=== PATIENT | female | born 1955 | race Caucasian/White ===

== ENCOUNTER → 2023-08-30 15:29 | Outpatient (BNVA) | payer MEDICARE, BC, SELFPAY | PROVIDERS: Visit Provider Podiatrist Foot & Ankle Surgery | DX: M19.071 Primary osteoarthritis, right ankle and foot; M19.072 Primary osteoarthritis, left ankle and foot; M20.21 Hallux rigidus, right foot; M20.22 Hallux rigidus, left foot | CPT/HCPCS: 73630; 99203 ==

== ENCOUNTER 2025-02-09 13:51 | Emergency (ER) | payer MEDICARE, BC, SELFPAY ==
--- OUTSIDE RECORDS SUMMARY | 2025-02-09 13:55 | XMS_ITS | Encounter Summary ---
Author Organization [facility] Address [address] [place] [address] Care Team Providers Care Wastewater Project Manager Name Role Phone Sanchez Dsouza MD Primary Care Provider [phone] Reason for Visit * Reason Onset Date Comments Results 12/10/2024 Encounter Details Date Type Department Care Team (Late st Contact Info) Description 12/10/2024 Results Follow-Up [facility] Medicine [address] [address] Sanchez Dsouza MD [address] [place] [address] HEMOGLOBIN A1C, MAGNESIUM LEVEL, VITAMIN B12 LEVEL, Additional followed-up results: 7 Social History Tobacco Use Types Packs/Day Years Used Date Smoking Tobacco: Never Smokeless Tobacco: Never Alcohol Use Standard Drinks/Week Comments No 0 (1 standard drink = 0.6 oz pur e alcohol) Financial Resource Strain Answer Date R ecorded How hard is it for you to pa y for the very basics like food, housing, medical care, and heating? Not hard at all 11/03/2021 Food Insecurity Answer Date Recorded In the past 12 months, have you worried that your food would run out before you had money to buy more? Never true 11/03/2021 In the past 12 months, did y ou run out of food and didn't have money to buy more? Never true 11/03/2021 Transportation Needs Answer Date Record ed In the past 12 months, has l ack of transportation kept you from medical appointments or from getting medications? No 11/03/2021 Lack of Transportation (Non-Medical) Not on file 11/03/2021 Feeling Safe Answer Date Recorded Are you in a relationship wi th someone who hurts you emotionally and/or physically? 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 Voiced understanding. She states that she is a carnivore and doesn't eat carbs, sugar, soda, or take NSAIDs. She reports that she wasn't fasting for this lab and that is why the cholesterol is elevated. Results faxed to Dr. Esquivel. Linda OWEN * Telephone Encounter - Linda Elliott RN - 12/10/2024 9:28 AM CDT ----- Message from Dr. Sanchez Dsouza sent at 12/10/2024 7:19 AM CDT ----- A1c abnormal at 6.0 consistent with prediabetes, blood sugar is borderline elevated, patient needs to improve diet intake of carbohydrates and cut down on any excess sweets or sugary drinks, cholesterol is significantly elevated, magnesium normal, thyroid normal, B12 normal, vitamin D normal, PTH normal, blood count looks good, liver enzymes normal, electrolytes normal, kidney function is below normal, I would increase clear fluids, reduce salt and sodas and avoid all [id number] NSAIDs. Recommend repeat labs in the next few weeks, tests ordered. If she is interested in treating cholesterol I would recommend medication and I will send to pharmacy if she agrees. Patient follows with cardiology in [place], please forward lab results. documented in this encounter Plan of Treatment Scheduled Orders Name Type Priority Associated Diagnoses Orde r Schedule BASIC METABOLIC PANEL Lab Routine BENEDICTO (acute kidney injury) Expected: 12/10/2024, Expires: 12/10/2025 documented as of this encounter Visit Diagnoses Diagnosis BENEDICTO (acute kidney injury)- Primary Acute kidney failure, unspecified documented in this encounter Additional Health Concerns Assessment Noted Time PHQ-9 Depression Total Score: 2 11/20/19 25 12:19 PM CDT documented as of this encounter Care Teams Wastewater Project Manager Relationship Specialty Start Date End Date Sanchez Dsouza MD [address] [id number] PCP - General Family Practice 04/07/21 documented as of this encounter
--- OUTSIDE RECORDS SUMMARY | 2025-02-09 13:55 | XMS_ITS | Clinical Summary ---
Author Organization [place] [id number] [facility] Address [address] [place] [address] Care Team Providers Care Shoe Clerk Name Role Phone Unknown, Notinfile Primary Care Provider Unavail able Allergies No known active allergies Medications losartan (COZAAR) 100 mg tablet Take 1 tablet (100 mg total) by mouth daily Active magnesium carb,citrate,oxi de (MAGNESIUM COMPLEX ORAL) Take 1 tablet by mouth 56mg Active apixaban (ELIQUIS) 5 mg tabletIndication s:Atrial fibrillation, unspecified type (HCC) Take 1 tablet (5 mg total) by mouth 2 (two) times a day 180 tablet 3 12/10/2024 Active metoprolol XL (TOPROL-XL) 50 mg extended release tabletIndication s:Atrial fibrillation, unspecified type (HCC) Take 1 tablet (50 mg total) by mouth daily 90 tablet 3 12/10/2024 Active Active Problems Problem Noted Date Diagnosed Date Persistent atrial fibrillation 12/10/2024 Essential hypertension 12/10/2024 Class 2 obesity with body ma ss index (BMI) of 35.0 to 35.9 in adult 12/10/2024 Amblyopia 11/23/2010 Encounters Date Type Department Care Team Description 12/25/2024 Telephone [facility] Medicine Cardiology [facility] Advanced Medicine [address]th [place] [address] [place] [phone] Abraham Esquivel MD PhD 12/10/2024 12:00 PM CDT Office Visit [facility] Medicine Cardiology [facility] Medicine [address]th [place] [address] [place] [address] Abraham Esquivel MD PhD Persistent atrial fibrillation (HCC) (Primary Dx); Atrial fibrillation, unspecified type (HCC); Essential hypertension; Class 2 severe obesity due to excess calories with serious comorbidity and body mass index (BMI) of 35.0 to 35.9 in adult (HCC) 12/10/2024 Results Follow-Up [facility] Medicine Cardiology [address] [facility] 8th [place] [address] [place] [address] Abraham Esquivel MD PhD ECG 12 lead from Last 3 Months Social History Tobacco Use Types Packs/Day Years Used Date Smoking Tobacco: Never Comments Unknown Sex and Gender Information Value Date Recorded Sex Assigned at Not on file 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 Gender Identity Not on file Sexual Orientation Not on file Obstetrics History Last Filed Vital Signs Vital Sign Reading Time Taken Comments Blood Pressure 168/104 12/10/2024 11:54 AM CDT Pulse 81 12/10/2024 11:54 AM CDT Temperature - - Respiratory Rate - - Oxygen Saturation 98% 12/10/2024 11:54 AM CDT Inhaled Oxygen Concentration - - Weight 90.8 kg (200 lb 3.2 oz) 12/10/2024 11:54 AM CDT Height 160 cm (5' 3 ) 12/10/2024 11:54 AM CDT Body Mass Index 35.46 12/10/2024 11:54 AM CDT Plan of Treatment Health Maintenance Due Date Last Done Comments Colon Cancer Screening-Colonoscopy 1955 Depression Screening 1955 Fall Risk Assessment 1955 Hepatitis C Screening 1955 Osteoporosis Screening-Bone Density Scan 1955 Hepatitis B Screening 09/09/1973 Pneumococcal vaccine 65+ (1 of 1 - PCV) 09/09/2005 Zoster Vaccine (1 of 2) 09/09/2005 Breast Cancer Screening-Mammogram 04/14/2012 011, 04/14/2011 Well Visit 65+ 09/09/2020 Influenza Vaccine (#1) 2025 DTaP/Tdap/Td Vaccine (2 - Td or Tdap) 03/06/203012/2019 Procedures Procedure Name Priority Date/Time Associated Diagnosis Comments ECG 12-LEAD Routine 12/10/2024 11:58 AM CDT Persistent atrial fibrillation (HCC) from Last 3 Months Results * ECG 12 lead (12/10/2024 11:58 AM CDT) Abraham Esquivel MD PhD ECG ORDERABLES Final Result from Last 3 Months Insurance MEDICARE [facility] MEDICARE SUPPLEMENT [address] [facility] [address] [place] [id number] Care Teams Shoe Clerk Relationship Specialty Start Date End Date Unknown, Notinfile PCP - General 08/09/24
--- OUTSIDE RECORDS SUMMARY | 2025-02-09 13:55 | XMS_ITS | Encounter Summary ---
Author Organization [facility] Address [address] [place] [address] Care Team Providers Care Field Associate Name Role Phone Sanchez Dsouza MD Primary Care Provider [phone] Reason for Visit * Reason Onset Date Comments Ambulatory Social Work 04/05/2024 Med costs Encounter Details Date Type Department Care Team (Late st Contact Info) Description 04/05/2024 Patient Outreach [facility] Collections Agent Management [address] [facility] [place] [address] Ary Acosta, [facility] Ambulatory Social Work (Med costs) Social History Tobacco Use Types Packs/Day Years [...] on file 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
--- OUTSIDE RECORDS SUMMARY | 2025-02-09 13:55 | XMS_ITS | Encounter Summary ---
Author Organization [facility] Address [address] [place] [address] Care Team Providers Care Office Machine Installer Name Role Phone Sanchez Dsouza MD Primary Care Provider [phone] Reason for Visit * Reason Onset Date Comments Ambulatory Social Work 04/04/2024 Medicatio n costs Encounter Details Date Type Department Care Team (Late st Contact Info) Description 04/04/2024 Patient Outreach [facility] Tape Machine Tailer Management [address] [facility], [address] [place] [address] Ary Acosta, LIBRARY SALES CONSULTANT Ambulatory Social Work (Medication costs) Social History Tobacco Use Types Packs/Day [...] on file 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
--- OUTSIDE RECORDS SUMMARY | 2025-02-09 13:55 | XMS_ITS | Encounter Summary ---
Author Organization [facility] Address 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 Gender Identity Not on file Sexual Orientation Not on file documented as of this encounter Plan of Treatment Not on file documented as of this encounter Procedures Procedure Name Priority Date/Time Associated Diagnosis Comments PROTIME-INR Stat 03/23/2024 4:05 PM CDT Encounter for other specified aftercare documented in this encounter Results * PROTIME-INR (03/23/2024 4:05 PM CDT) PROTIME 12.9 11.9 - 14.6 Seconds 03/23/2024 4:18 PM CDT [facility] INR 1.0 0.9 - 1.1 03/23/2024 4:18 PM CDT [facility] Blood 03/23/2024 4:05 PM CDT 03/23/2024 4:05 PM CDT Fredy Mccormick MD HEMATOLOGY ORDERA BLES Final Result [facility] CLIA # [id number] [address] [address] documented in this encounter Visit Diagnoses Diagnosis Encounter for other specified aftercare documented in this encounter Care Teams Can Worker Relationship Specialty Start Date End Date Sanchez Dsouza MD [address] [phone] PCP - General Family Practice 04/07/21 documented as of this encounter
--- OUTSIDE RECORDS SUMMARY | 2025-02-09 13:55 | XMS_ITS | Encounter Summary ---
Author Organization [facility] Address [address] [address] Phone Care Team Providers Care Shaker Tender Name Role Phone Yifan Marte COMPUTER ANALYST Primary Care Provider [phone] Reason for Visit * Reason Comments Med Refill Encounter Details Date Type Department Care Team (Late st Contact Info) Description 10/17/2020 Refill [facility] [address] [id number] Yifan Marte, [address] [address] Social History Tobacco Use Types Packs/Day Years Used Date Smoking Tobacco: Never Smokeless Tobacco: Never Alcohol Use Standard Drinks/Week Comments Never 0 (1 standard drink = 0.6 oz pur e alcohol) AUDIT-C Answer Date Recorded Q1: How often do you have a drink containing alc ohol? Never 04/23/2020 Average Number of Drinks Not on file 020 Frequency of Binge Drinking Not on file 03/31 Comments Unknown Sex and Gender Information Value Date Recorded Sex Assigned at Not on file Legal Sex Female 10:52 AM CDT Gender Identity Not on file Sexual Orientation Not on file COVID-19 Exposure Response Date Recorded In the last month, have you been in contact with someone who was confirmed or suspected to have Coronavirus / COVID-19? No / Unsure 10/14/2020 4:38 PM CDT documented as of this encounter Plan of Treatment Not on file documented as of this encounter Visit Diagnoses Not on filedocumented in this encounter Care Teams Shaker Tender Relationship Specialty Start Date End Date Yifan Marte FNP PCP - General Family Medicine 03/27/20 04/13/21 documented as of this encounter
--- OUTSIDE RECORDS SUMMARY | 2025-02-09 13:55 | XMS_ITS | Patient Health Record ---
Author Organization [facility] Address [address] [place] [address] Support Name Relationship Address Phone BABAK GLYNN Guarantor Unknown [phone] Reason For Referral No Information Medications Medication SIG (Take, Route, Frequency, Duration) Notes Start Date End Date Status Spironolactone 25 MG 1 tablet Oral daily Not-Taking Cartia XT 240 MG 1 capsule Oral daily Not-Taking Medications Reconciled *please review for potential update for e-prescription and drug interaction check* Not-Taking Quinapril HCl 40 MG 1 tablet Oral daily Not-Taking Labetalol HCl 100 MG 1 tablet Oral daily Not-Taking Immunizations Vaccine Route Administration Date Status Comme nts Influenza, seasonal, injectable (split), for 3 yrs and up OTH Other/Miscell aneous 05/30/2019 Not Administered NotGiven Reason : Declined by Patient/Guardian Problems Problem Type SNOMED Code ICD Code Onset Dates Problem Status W/U Status Risk Notes Problem Obese class II (finding) (816383461849267) CLASS 2 OBESITY (E66.9) Inactive confirmed Description :OBESITY, CLASS II (BMI 35-39.9) Problem Dietary management surveillance (215153830) ENCOUNTER FOR DIETARY COUNSELING AND SURVEILLANCE (Z71.3) Inactive confirmed Description :DIETARY COUNSELING Problem Hypercalcemia (95189189) Hypercalcemia (E83.52) Inactive confirmed Problem Influenza vaccination declined (610790856) REFUSED INFLUENZA VACCINE (Z28.21) Inactive confirmed Description :IMMUNIZATI ON DECLINED BY PATIENT Problem Hyperparathyroidism (55525662) HYPERPARATHYROIDI SM (E21.3) Inactive confirmed Problem Essential hypertension (06345626) Essential hypertension (I10) Inactive confirmed Problem Anxiety (60525500) ANXIETY (F41.9) Inactive conf irmed Problem Fatigue (16396685) FATIGUE (R53.83) Inactive con firmed Problem Vitamin D deficiency (52691845) VITAMIN D DEFICIENCY (E55.9) Inactive confirmed Problem 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, 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) Inactive confirmed Comment:con genital, Problem Non-toxic multinodular goiter (70513323) MULTINODULAR GOITER (NONTOXIC) (E04.2) Inactive confirmed Plan Of Treatment No Information Insurance Providers Payer Name Payer Address Payer Phone Subscriber Number Group Number Insured Name Patient Relationship to Insured Coverage Start Date Coverage End Date [employer] [address] [place] [address] [id number] BABAK GLYNN Self - patient is the insured 8 Medical (General) History Surgical History Surgery Date(Month/Year) Tonsillectomy, ProblemStatus: Active, Parathyroidectomy, COMMENTS: left lower, 07/06/19, ProblemStatus: Active, Left wrist surgery, COMMENTS: s/p fx, Pr oblemStatus: Active,
--- OUTSIDE RECORDS SUMMARY | 2025-02-09 13:55 | XMS_ITS | Encounter Summary ---
Author Organization [facility] Address [address] [address] Phone Care Team Providers Care Logistics Analytics Manager Name Role Phone Yifan Marte Primary Care Provider [phone] Encounter Details Date Type Department Care Team (Late st Contact Info) Description 04/23/2020 Orders Only [facility] [address] [place] [address] Kadie Oliver LPN [address] [place] [address] Hyperlipidemia, unspecified hyperlipidemia type Social History Tobacco Use Types Packs/Day Years [...] on file documented as of this encounter Functional Status documented as of this encounter Plan of Treatment Not on file documented as of this encounter Visit Diagnoses Diagnosis Hyperlipidemia, unspecified hyperlipidemia type documented in this encounter Care Teams Logistics Analytics Manager Relationship Specialty Start Date End Date Yifan Marte FNP PCP - General Family Medicine 03/27/20 04/13/21 documented as of this encounter
--- OUTSIDE RECORDS SUMMARY | 2025-02-09 13:55 | XMS_ITS | Clinical Summary ---
Author Organization [facility] Address [address] Darden: Epic Prelude ADT ELIU BEGUM [address] Care Team Providers Care Brake Specialist Name Role Phone Sanchez Dsouza MD Primary Care Provider [phone] Allergies Active Allergy Reactions Criticality Noted Date Comments Lisinopril Other (See Comments) 11/11/2022 fatigue Squid Anaphylaxis High 01/09/2020 Other reaction(s): Anaphylaxis Squid Oil Shortness of Breath/Wheezing High 07/06/2019 Squid Causes Shortness of breath, rash, throat swelling Medications MAGNESIUM ORAL Take 1 Tablet by mouth late in the day. Active diltiaZEM (TIAZAC) 360 mg Extended Release capsule Take 360 mg by mouth daily. 06/10/2023 Active losartan (COZAAR) 100 mg tablet Take 100 mg by mouth daily. 11/10/2023 Active spironolactone (ALDACTONE) 25 mg tablet Take 25 mg by mouth daily. Active aspirin (ECOTRIN EC) 81 mg Tablet, Delayed Release (E.C.) Take 81 mg by mouth daily. Active Active Problems Problem Noted Date Diagnosed Date Hyperlipidemia 11/03/2021 Benign hypertension 04/07/2021 History of parathyroidectomy 04/07/2021 Severe obesity (BMI 35.0-39.9) with comorbidity 04/07/2021 Paroxysmal atrial fibrillation 04/23/2020 Encounters Date Type Department Care Team Description 02/05/2025 External Device Data STL ABSTRACTION Provider, Abstract 01/29/2025 External Device Data ST[facility] ABSTRACTION Provider, Abstract 01/15/2025 External Device Data ST[facility] ABSTRACTION Provider, Abstract 01/15/2025 External Device Data [facility] ABSTRACTION Provider, Abstract 12/12/2024 External Device Data ST[facility] ABSTRACTION Provider, Abstract 12/10/2024 Results Follow-Up [address] [address] Sanchez Dsouza MD HEMOGLOBIN A1C, MAGNESIUM LEVEL, VITAMIN B12 LEVEL, Additional followed-up results: 7 12/06/2024 External Device Data Initial Department [address] [place] [address] Dr DARDEN: [place] [address] Crist[facility] 11/29/2024 External Device Data Initial Department [address] [place] [address] Dr DARDEN: [place] [address] [facility] 11/28/[address] [address] Provider, Abstract 11/27/2024 External Device Data ST[facility] ABSTRACTION Provider, Abstract 11/23/2024 External Device Data Initial Department [address] [place] [address] Dr DARDEN: [place] [address] [facility] 11/20/2024 10:40 AM CDT Office Visit [address] [address] Sanchez Dsouza MD Medicare annual wellness visit, subsequent (Primary Dx); Paroxysmal atrial fibrillation (CMS/HCC); Benign hypertension; Severe obesity (BMI 35.0-39.9) with comorbidity (CMS/HCC); History of parathyroidectomy; Mixed hyperlipidemia; Fatigue, unspecified type; Other fdc (current) drug therapy 11/19/2024 External Device Data Initial Department [address] [place] [address] Dr DARDEN: [place] [address] Cristian Price Md 11/19/2024 Orders Only [address] [address] Sanchez Dsouza MD Warfarin anticoagulation 11/15/2024 Orders Only [facility] [place] [address] [place] [address] Provider, Abstract 11/15/2024 Abstract [facility] [address] [phone] Sanchez Dsouza MD 11/15/2024 External Device Data Initial Department [address] [place] [address] Dr DARDEN: [place] [address] Crist[facility] Emergency, 11/12/2024 External Device Data Initial Department [address] [place] [address] Dr DARDEN: [place] [address] Cristian Emergency, Md 11/12/2024 Orders Only [facility] [address] [address] Sanchez Dsouza MD Warfarin anticoagulation from Last 3 Months Immunizations Immunization Administration Dates Next Due (ADACEL/BOOSTRIX)(10 YR UP) TDAP VACCINE, 0.5ML, IM 03/06/2020 Family History Medical History Relation Name Comments Breast Cancer Neg Hx Social History Tobacco Use Types Packs/Day Years [...] on file Legal Sex 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 2:54 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 Gender Identity Not on file Sexual Orientation Not on file Last Filed Vital Signs Vital Sign Reading Time Taken Comments Blood Pressure 160/94 11/20/2024 10:52 AM CDT Pulse 105 11/20/2024 10:47 AM CDT Temperature 36.5 C (97.7 F) 11/20/2024 10:47 AM CDT Respiratory Rate 17 11/20/2024 10:47 AM CDT Oxygen Saturation 96% 11/20/2024 10:47 AM CDT Inhaled Oxygen Concentration - - Weight 90.4 kg (199 lb 6.4 oz) 11/20/2024 10:47 AM CDT Height 160 cm (5' 3 ) 11/20/2024 10:47 AM CDT Body Mass Index 35.32 11/20/2024 10:47 AM CDT Plan of Treatment Health Maintenance Due Date Last Done Comments FIT/ DNA Q 3 YEARS (AUTO ORDER) 09/09/1973 FIT/FOBT Q 1 YEAR (AUTO ORDER) 09/09/1973 PNEUMOCOCCAL VACCINE 50+ YEARS (1 of 2 - PCV) 09/09/1974 FIT-DNA Q 3 years 09/09/2000 FIT/FOBT Q 1 year 09/09/2000 Flex Sig/CT Colonography Q 5 years 09/09/2000 ZOSTER VACCINE (1 of 2) 09/09/2005 RSV VACCINE (60+ or ) (1 - Risk 60-74 years 1-dose series) 2015 OSTEOPOROSIS SCREENING 09/09/2020 INFLUENZA VACCINE (#1) 2024 04/07/2021 FLEX SIG/CT COLONOGRAPHY Q 5 YEARS (AUTO ORDER) 01/10/2025 01/11/2020, 01/11/2020 BREAST CANCER SCREENING 03/27/2025 04/14/20 11, 04/14/2011, 02/26/2010, Additional history exists Postponed from 04/14/2012 (Patient Request) Traditional Medicare (ACO) Annual Wellness Visit 11/21/2025 11/20/2024, 11/21/2023, 11/05/2022, Additional history exists Pre-Diabetes and Diabetes Screening 11/21/2027 11/20/2024 COLORECTAL CANCER SCREENING (AUTO ORDER) 01/10/2030 01/11/2020, 01/11/2020 COLORECTAL SCREENING 01/10/2030 01/11/2020, 01/11/20 20 Colorectal Cancer Screening (AUTO ORDER) 01/10/2030 Colorectal Cancer Screening 01/10/2030 DTAP/TDAP/TD VACCINES (2 - Td or Tdap) 03/06/2030 03/06/2020 Procedures Procedure Name Priority Date/Time Associated Diagnosis Comments URINALYSIS W/REFLEX MICROSCOPIC Routine 11/20/2024 3:58 PM CDT Paroxysmal atrial fibrillation (CMS/HCC) Benign hypertension Mixed hyperlipidemia Fatigue, unspecified type Other fdc (current) drug therapy PTH INTACT Routine 11/20/2024 11:44 AM CDT History of parathyroidectomy Fatigue, unspecified type Other fdc (current) drug therapy CBC WITH DIFFERENTIAL Routine 11/20/2024 11:44 AM CDT Paroxysmal atrial fibrillation (CMS/HCC) Benign hypertension Mixed hyperlipidemia Fatigue, unspecified type Other termite technician (current) drug therapy COMPREHENSIVE METABOLIC PANEL Routine 11/20/2024 11:44 AM CDT Paroxysmal atrial fibrillation (CMS/HCC) Benign hypertension Mixed hyperlipidemia Fatigue, unspecified type Other termite technician (current) drug therapy TSH Routine 11/20/2024 11:44 AM CDT Paroxysmal atrial fibrillation (CMS/HCC) Benign hypertension Mixed hyperlipidemia Fatigue, unspecified type Other fdc (current) drug therapy LIPID PANEL Routine 11/20/2024 11:44 AM CDT Paroxysmal atrial fibrillation (CMS/HCC) Benign hypertension Mixed hyperlipidemia VITAMIN D 25 HYDROXY Routine 11/20/2024 11:44 AM CDT Fatigue, unspecified type Other termite technician (current) drug therapy VITAMIN B12 LEVEL Routine 11/20/2024 11: 44 AM CDT Fatigue, unspecified type Other fdc (current) drug therapy MAGNESIUM LEVEL Routine 11/20/2024 11:44 AM CDT Paroxysmal atrial fibrillation (CMS/HCC) Benign hypertension Fatigue, unspecified type Other termite technician (current) drug therapy HEMOGLOBIN A1C Routine 11/20/2024 11:44 AM CDT Fatigue, unspecified type Other fdc (current) drug therapy ENDOSCOPY, COLON, SCREENING Routine 01/11/2020 2:39 PM CDT MAMMO 3D TEO SCREEN BILATERAL MOBILE Routine 04/14/2011 5:53 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 Other screening mammogram from Last 3 Months or Most Recently Relevant to Health Maintenance Results * (ABNORMAL) URINALYSIS WITH REFLEX MICROSCOPIC (11/20/2024 3:58 PM CDT) COLOR UA YELLOW YELLOW [facility] CLARITY UA CLEAR CLEAR [facility] SPECIFIC GRAVITY UA 1.022 1.001 - 1.035 [facility] PH UA < OR = 5.0(A) 5.0 - 8.0 [facility] GLUCOSE UA NEGATIVE NEGATIVE [facility] BILIRUBIN UA NEGATIVE NEGATIVE [facility] KETONES UA TRACE(A) NEGATIVE [facility] BLOOD UA NEGATIVE NEGATIVE [facility] PROTEIN UA TRACE(A) NEGATIVE [facility] NITRITE UA NEGATIVE NEGATIVE [facility] LEUKOCYTE ESTERASE UA TRACE(A) NEGATIVE [facility] WBC UA 6-10(A) < OR = 5 /HPF [facility] RBC UA NONE SEEN < OR = 2 /HPF [facility] EPITHELIAL CELLS, URINE 6-10(A) < OR = 5 /HPF [facility] BACTERIA UA NONE SEEN NONE SEEN /HPF [facility] HYALINE CAST 0-5(A) NONE SEEN /LPF [facility] URINE NOTE [facility] Comment: This urine was analyzed for the presence of WBC, RBC, bacteria, casts, and other formed elements. Only those elements seen were reported. Test Performed at: [facility] [address] [place] [address] Lynn Waldron MD Urine URINE SPECIMEN OBTAINED BY CLEAN CATCH PROCEDURE / Unknown 11/20/2024 3:58 PM CDT 11/21/2024 3:37 AM CDT us Sanchez Dsouza MD URINE ORDERABLES Final Re sult [facility] [phone] [facility] [address] [place] [address] * (ABNORMAL) CBC WITH DIFFERENTIAL (11/20/2024 11:44 AM CDT) WBC 6.4 3.8 - 10.8 Thousand/u L [facility] RBC 5.10 3.80 - 5.10 Million/uL [facility] HEMOGLOBIN 15.2 11.7 - 15.5 g/dL [facility] HEMATOCRIT 47.1(H) 35.0 - 45.0 % [facility] MCV 92.4 80.0 - 100.0 fL [facility] MCH 29.8 27.0 - 33.0 pg [facility] MCHC 32.3 32.0 - 36.0 g/dL [facility] Comment: For adults, a slight decrease in the calculated MCHC value (in the range of 30 to 32 g/dL) is most likely not clinically significant; however, it should be interpreted with caution in correlation with other red cell parameters and the patient's clinical condition. RDW 13.0 11.0 - 15.0 % [facility] PLATELETS 184 140 - 400 Thousand/u L [facility] MPV 10.9 7.5 - 12.5 fL [facility] NEUTROPHIL ABSOLUTE 3,686 1,500 - 7,800 cells/uL [facility] LYMPHOCYTE ABSOLUTE 1,850 850 - 3,900 cells/uL [facility] MONOCYTE ABSOLUTE 608 200 - 950 cells/uL [facility] EOSINOPHIL ABSOLUTE 218 15 - 500 cells/uL [facility] BASOPHILS ABSOLUTE 38 0 - 200 cells/uL [facility] NEUTROPHIL 57.6 % [facility] LYMPHOCYTES 28.9 % [facility] MONOCYTE 9.5 % [facility] EOSINOPHILS 3.4 % [facility] BASOPHILS 0.6 % [facility] Comment: Test Performed at: [facility] [address] [place] [address] Lynn Waldron MD Blood 11/20/2024 11:4 4 AM CDT 11/21/2024 3:06 AM CDT Sanchez Dsouza MD HEMATOLOGY ORDERABLES Fin al Result Performing Organization Address City/[facility]/ZIP Co de Phone Number [facility] [phone] [facility] [address] * VITAMIN D 25 HYDROXY (11/20/2024 11:44 AM CDT) VITAMIN D, 25 OH, TOTAL 34 30 - 100 ng/mL [facility] Comment: Vitamin D Status 25-OH Vitamin D: Deficiency: <20 ng/mL Insufficiency: 20 - 29 ng/mL Optimal: > or = 30 ng/mL For 25-OH Vitamin D testing on patients on D2-supplementation and patients for whom quantitation of D2 and D3 fractions is required, the QuestAssureD(TM) 25-OH VIT D, (D2,D3), LC/MS/MS is recommended: order code 24494 (patients >2yrs). See Note 1 Note 1 For additional information, please refer to http://education.CXOWARE/faq/ETP802 (This link is being provided for informational/ educational purposes only.) Test Performed at: [facility] [address] Lynn Waldron MD Blood 11/20/2024 11:4 4 AM CDT 11/21/2024 3:06 AM CDT Sanchez Dsouza MD CHEMISTRY ORDERABLES Elisha l Result [facility] [phone] [address] * TSH (11/20/2024 11:44 AM CDT) TSH 2.08 0.40 - 4.50 mIU/L [facility] Comment: Test Performed at: [facility] [address] [facility] [place] [address] Lynn Waldron MD Blood 11/20/2024 11:4 4 AM CDT 11/21/2024 3:06 AM CDT Sanchez Dsouza MD CHEMISTRY ORDERABLES Elisha l Result Performing Organization Address City/[facility]/ZIP Co de Phone Number [facility] [phone] [facility] [address] [place] [address] * PTH INTACT (11/20/2024 11:44 AM CDT) PTH INTACT 32 16 - 77 pg/mL [facility] Comment: Interpretive Guide Intact PTH Calcium ------- Normal Parathyroid Normal Normal Hypoparathyroidism Low or Low Normal Low Hyperparathyroidism Primary Normal or High High Secondary High Normal or Low Tertiary High High Non-Parathyroid Hypercalcemia Low or Low Normal High Test Performed at: [facility] [address] [place] [address] Lynn Waldron MD Blood 11/20/2024 11:4 4 AM CDT 11/21/2024 3:06 AM CDT Sanchez Dsouza MD CHEMISTRY ORDERABLES Elisha l Result [facility] [phone] [facility] [address] [place] [address] [place] [address] * MAGNESIUM LEVEL (11/20/2024 11:44 AM CDT) Pathologist [facility] MAGNESIUM 2.2 1.5 - 2.5 mg/dL [facility] Comment: Test Performed at: [facility] [address] [place] [address] Lynn Waldron MD Blood 11/20/2024 11:4 4 AM CDT 11/21/2024 3:06 AM CDT Sanchez Dsouza MD CHEMISTRY ORDERABLES Elisha l Result Performing Organization Address City/[facility]/ZIP Co de Phone Number [facility] [phone] [facility] [address] [facility] [place] [address] * (ABNORMAL) HEMOGLOBIN A1C (11/20/2024 11:44 AM CDT) HEMOGLOBIN A1C 6.0(H) <5.7 % [facility] Comment: For someone without known diabetes, a hemoglobin A1c value between 5.7% and 6.4% is consistent with prediabetes and should be confirmed with a follow-up test. For someone with known diabetes, a value <7% indicates that their diabetes is well controlled. A1c targets should be individualized based on duration of diabetes, age, comorbid conditions, and other considerations. This assay result is consistent with an increased risk of diabetes. Currently, no consensus exists regarding use of hemoglobin A1c for diagnosis of diabetes for children. ESTIMATED AVERAGE GLUCOSE (MG/DL) 126 mg/dL [facility] ESTIMATED AVERAGE GLUCOSE (MMOL/L) 7.0 mmol/L [facility] Comment: Test Performed at: [facility] [address] [facility] [place] [address] Lynn Waldron MD Blood 11/20/2024 11:4 4 AM CDT 11/21/2024 3:06 AM CDT Sanchez Dsouza MD CHEMISTRY ORDERABLES Elisha l Result [facility] [phone] [facility] [address] [place] [address] * VITAMIN B12 LEVEL (11/20/2024 11:44 AM CDT) VITAMIN B12 679 200 - 1100 pg/mL [facility] Comment: Test Performed at: [facility] [address] [place] [address] Lynn Waldron MD Blood 11/20/2024 11:4 4 AM CDT 11/21/2024 3:06 AM CDT Sanchez Dsouza MD CHEMISTRY ORDERABLES Elisha l Result [facility] [phone] [facility] [address] [facility] [place] [address] * (ABNORMAL) LIPID PANEL (11/20/2024 11:44 AM CDT) CHOLESTEROL 300(H) <200 mg/dL [facility] HDL 93 > OR = 50 mg/dL [facility] TRIGLYCERIDE 78 <150 mg/dL [facility] LDL CALCULATED 189(H) mg/dL (calc) [facility] Comment: Reference range: <100 Desirable range <100 mg/dL for primary prevention; <70 mg/dL for patients with CHD or diabetic patients with > or = 2 CHD risk factors. LDL-C is now calculated using the Yaakov-Stefania calculation, which is a validated novel method providing better accuracy than the Friedewald equation in the estimation of LDL-C. Yaakov SS et al. ADOLFO. 2013;310(19): 3836-0305 (http://education.Humansized.Attero/faq/JCZ462) CHOL/HDL RATIO 3.2 <5.0 (calc) [facility] NON-HDL CHOLESTEROL 207(H) <130 mg/dL (calc) [facility] Comment: For patients with diabetes plus 1 major ASCVD risk factor, treating to a non-HDL-C goal of <100 mg/dL (LDL-C of <70 mg/dL) is considered a therapeutic option. Test Performed at: [facility] [address] [place] [address] Lynn Waldron MD Blood 11/20/2024 11:4 4 AM CDT 11/21/2024 3:06 AM CDT Sanchez Dsouza MD CHEMISTRY ORDERABLES Elisha martinez Result [facility] [phone] [facility] [address] [address] [place] [address] * (ABNORMAL) COMPREHENSIVE METABOLIC PANEL (11/20/2024 11:44 AM CDT) GLUCOSE 99 65 - 99 mg/dL [facility] Comment: Fasting reference interval BUN 27(H) 7 - 25 mg/dL [facility] CREATININE 1.37(H) 0.50 - 1.05 mg/dL [facility] GFR 42(L) > OR = 60 mL/min/1.7 3m2 [facility] BUN/CREAT RATIO 20 6 - 22 (calc) [facility] SODIUM 140 135 - 146 mmol/L [facility] POTASSIUM 4.2 3.5 - 5.3 mmol/L [facility] CHLORIDE 103 98 - 110 mmol/L [facility] CO2 29 20 - 32 mmol/L [facility] CALCIUM 9.5 8.6 - 10.4 mg/dL [facility] TOTAL PROTEIN 6.9 6.1 - 8.1 g/dL [facility] ALBUMIN 4.3 3.6 - 5.1 g/dL [facility] GLOBULIN 2.6 1.9 - 3.7 g/dL (calc) [facility] ALBUMIN/GLOBULIN RATIO 1.7 1.0 - 2.5 (calc) [facility] BILIRUBIN TOTAL 0.6 0.2 - 1.2 mg/dL [facility] ALKALINE PHOSPHATASE 59 37 - 153 U/L [facility] AST 23 10 - 35 U/L [facility] ALT 23 6 - 29 U/L [facility] Comment: Test Performed at: [facility] [address] [facility] [place] [address] Lynn Waldron MD Blood 11/20/2024 11:4 4 AM CDT 11/21/2024 3:06 AM CDT Sanchez Dsouza MD CHEMISTRY ORDERABLES Elisha l Result [facility] [phone] [facility] [address] [place] [address] * ENDOSCOPY, COLON, SCREENING (01/11/2020 2:39 PM CDT) Abstract Provider GI PROCEDURE ORDERABLES Final Result * MAMMO 3D SCREEN BILATERAL MOBILE (04/14/2011 5:53 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) Anatomical Region Laterality Modality Breast Bilateral Other Narrative 04/15/2011 3:57 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 Bilateral Mammogram Reason for Exam: Screening Comparison: Comparison is made with the prior exam(s) dated 02.22.07 Findings: Bilateral CC and MLO views were obtained. This examination was reviewed with the aid of a computer-aided detection system(CAD). The breast tissue density is fatty. A few scattered benign type calcifications bilaterally. No significant new findings since the prior mammogram(s). Procedure Note Skyler Cabello MD - 07/30/2022 Bilateral Mammogram Reason for Exam: Screening Comparison: Comparison is made with the prior exam(s) dated 02.22.07 Findings: Bilateral CC and MLO views were obtained. This examination was reviewed with the aid of a computer-aided detection system(CAD). The breast tissue density is fatty. A few scattered benign type calcifications bilaterally. No significant new findings since the prior mammogram(s). us Vasquez Erickson MD MAMMO ORDERABLES Final Result from Last 3 Months or Most Recently Relevant to Health Maintenance Insurance MEDICARE PART A AND B [facility] Care Teams Brake Specialist Relationship Specialty Start Date End Date Sanchez Dsouza MD [address] [phone] PCP - General Family Practice 04/07/21
--- OUTSIDE RECORDS SUMMARY | 2025-02-09 13:55 | XMS_ITS | Encounter Summary ---
Author Organization [facility] Address [address] [place] [address] Phone Care Team Providers Care Blue Line Hanger Name Role Phone Unknown, Notinfeddie Primary Care Provider Unavail able Encounter Details Date Type Department Care Team (Late st Contact Info) Description 12/10/2024 Results Follow-Up [facility] Medicine Cardiology [address] [place] [address] [place] [address] Abraham Esquivel MD PhD [address] 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
--- OUTSIDE RECORDS SUMMARY | 2025-02-09 13:55 | XMS_ITS | Encounter Summary ---
Author Organization [employer] [facility] Address 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
--- OUTSIDE RECORDS SUMMARY | 2025-02-09 13:55 | XMS_ITS | Clinical Summary ---
Author Organization [facility] Address [address] [place] [phone] Phone Care Team Providers Care Attorney Lawyer Name Role Phone Unavailable Primary Care Provider Unavailabl e Allergies Active Allergy Reactions Criticality Noted Date Comments Squid 01/09/2020 Other reaction(s): Anaphylaxis Medications cholecalciferol (D3-5) 5,000 Units tablet Take 1 tablet by mouth 1 (one) time each day. Active pregabalin (Lyrica) 50 mg capsuleIndicati ons:Neuropathy Take 1 capsule (50 mg total) by mouth every 12 (twelve) hours. 60 capsule 10/15/2020 Active carvediloL (Coreg) 6.25 mg tablet Take 1 tablet (6.25 mg total) by mouth 2 (two) times a day with meals. 60 tablet 5 10/15/2020 Active spironolactone (Aldactone) 25 mg tablet TAKE 1 TABLET BY MOUTH ONCE DAILY IN THE MORNING 30 tablet 02/27/2021 Active dilTIAZem ER (Tiazac) 240 mg 24 hr capsule Take 1 capsule by mouth once daily 30 capsule 02/27/2021 Active quinapriL (Accupril) 40 mg tablet TAKE 1 TABLET BY MOUTH ONCE DAILY IN THE MORNING 30 tablet 2 02/27/2021 Active Active Problems Problem Noted Date Diagnosed Date Primary osteoarthritis of left shoulder 11/28/19 21 Acute pain of left shoulder 10/15/2020 Abnormal glucose 10/15/2020 Wellness examination 04/23/2020 Vitamin D deficiency 04/23/2020 Thrombocytopenia 04/23/2020 Paroxysmal atrial fibrillation 04/23/2020 Neuropathy 04/23/2020 Hyperlipidemia 04/23/2020 Fatigue 04/23/2020 Essential hypertension 04/23/2020 Edema 04/23/2020 Cervical pain 04/23/2020 Immunizations Immunization Administration Dates Next Due Tdap 03/06/2020 Family History Medical History Relation Comments Dementia Father Hypertension Father Mental illness Father Stroke Father Liver cancer Maternal Grandfather Brain cancer Maternal Grandmother Aneurysm Paternal Grandfather Heart disease Paternal Grandfather Stroke Paternal Grandfather Stroke Paternal Grandmother No Known Problems Sister Relation Status Comments Father Maternal Grandfather Maternal Grandmother Mother Unknown Paternal Grandfather Paternal Grandmother Sister Alive Social History Tobacco Use Types Packs/Day Years [...] Sign Reading Time Taken Comments Blood Pressure 144/78 11/27/2020 2:10 PM CDT Pulse 60 11/27/2020 2:10 PM CDT Temperature 36.1 C (97 F) 10/15/2020 10:33 AM CDT Respiratory Rate 16 10/15/2020 10:33 AM CDT Oxygen Saturation 98% 10/15/2020 10:33 AM CDT Inhaled Oxygen Concentration - - Weight 93 kg (205 lb) 11/27/2020 2:10 PM CDT Height 160 cm (5' 3 ) 10/15/2020 10:33 AM CDT Body Mass Index 36.31 10/15/2020 10:33 AM CDT Plan of Treatment Health Maintenance Due Date Last Done Comments CT Colonography 1955 FIT-DNA 1955 FIT 1955 FOBT 1955 Sigmoidoscopy 1955 MMR Vaccines (1 of 1 - Stand fam series) 09/09/1956 Varicella Vaccines (1 of 2 - 13+ 2-dose series) 09/09/1968 Depression Screening 09/09/1973 Social Drivers of Health (SDoH) 09/09/1973 Mammogram 1995 Pneumococcal Vaccine: 50+ Ye ars (1 of 1 - PCV) 09/09/2005 Zoster Vaccines (1 of 2) 09/09/2005 DTaP,Tdap,and Td Vaccines (2 - Td or Tdap) 04/03/2020 03/06/2020 Complete Fall Risk Assessment 09/09/2020 COVID-19 Vaccine (1 - 2023-2 5 season) 2025 Influenza Vaccine (#1) 2025 Colonoscopy 01/10/2030 01/11/2020 Colorectal Cancer Screening 01/10/2030 RSV Vaccines (1 - 1-dose 75+ series) 09/09/2030 Diabetes Screening Discontinued 11/04/2020 HIB Vaccines Aged Out No longer eligi ble based on patient's age to complete this topic HPV Vaccines Aged Out No longer eligi ble based on patient's age to complete this topic Hepatitis A Vaccines Aged Out No long er eligible based on patient's age to complete this topic Hepatitis B Vaccines Aged Out No long er eligible based on patient's age to complete this topic IPV Vaccines Aged Out No longer eligi ble based on patient's age to complete this topic Meningococcal B Vaccine Aged Out No l onger eligible based on patient's age to complete this topic Meningococcal Vaccine Aged Out No prerna catal[place] eligible based on patient's age to complete this topic Pneumococcal Vaccine Aged Out No long er eligible based on patient's age to complete this topic Rotavirus Vaccines Aged Out No longer eligible based on patient's age to complete this topic Procedures Procedure Name Priority Date/Time Associated Diagnosis Comments HEMOGLOBIN A1C Routine 11/04/2020 4:05 PM CDT Abnormal glucose from Last 3 Months or Most Recently Relevant to Health Maintenance Results * Hemoglobin A1c (11/04/2020 4:05 PM CDT) Blood Venous blood specimen / Unknown us Yifan Marte CLINICAL RESOURCE NURSE LAB BLOOD ORDERABLES Final Resu lt EXTERNAL LAB from Last 3 Months or Most Recently Relevant to Health Maintenance Insurance [facility]ICARE [facility] SUPPLEMENT
[2025-02-09 14:21] VITALS: BP 161/83; PULSE 100; RESP 14; TEMP 36.8; O2SAT 98; BMI 34.5
--- NOTE | 2025-02-09 14:26 | ECG_ITS ---
[facility] Test Date: 2025-02-09 Pat Name: Charlette Reyes Department: Room: Gender: Female Ethics Officer: : 1955 Requested By: Joie Frazier Order Number: [id number] Craven MD: Wale Saenz M.D. Measurements Intervals [place] Rate: 76 P: 0 CO: 0 QRS: 33 QRSD: 88 T: 90 QT: 361 QTc: 408 Interpretive Statements ATRIAL FIBRILLATION NONSPECIFIC ST & T-WAVE ABNORMALITY ABNORMAL RHYTHM ECG No previous ECG available for comparison Electronically Signed On 02-09-2025 20:31:52 CDT by Wale Saenz M.D. [email or web address] [id number]
[2025-02-09 16:37] LABS: Hematocrit 42.7 % (36-47); Hemoglobin 14.10 g/dL (11.27-16.99); Mean Corpuscular HGB Conc 33.0 g/dL (30-55); Mean Corpuscular Hemoglobin 29.7 pg (27-33); Mean Corpuscular Volume 90.1 fl (85-98); Nucleated Red Blood Cells % 0 %; Platelet Count 160 10^3/cmm (157-399); Red Blood Count 4.74 10^6/uL (3.85-5.65); White Blood Count 6.66 10^3/uL (3.29-11.43)
[2025-02-09 17:00] VITALS: BP 166/97; PULSE 95; O2SAT 94
[2025-02-09 17:03] LABS: Alanine Aminotransferase 18 U/L (0-33); Albumin Level 4.0 g/dL (3.5-5.2); Alkaline Phosphatase 58 U/L (35-105); Anion Gap 12.9 (5-19); Aspartate Amino Transferase 22 U/L (0-32); Blood Urea Nitrogen 23 mg/dL (8-23); Calcium 9.4 mg/dL (8.5-10.5); Carbon Dioxide 29 mmol/L (22-29); Chloride 100 mmol/L (98-107); Creatinine Clr Calc Pharmacy 56.0085; Globulin 3.1 g/dL (1.3-4.6); Glucose 105 mg/dL (65-115); Osmolality Calculated 290 mOsm/kg (285-295); Potassium 3.9 mmol/L (3.5-5.1); Sodium 138 mmol/L (136-145); Total Protein 7.1 g/dL (6.6-8.7)
--- NOTE | 2025-02-09 17:09 | W.ED.ABDPA2 ---
HPI - Abdominal Pain General: Chief Complaint: Abdominal Pain Stated Complaint: abd pain Time Seen by Provider: 02/09/25 16:41 History of Present Illness: Patient is a 69-year-old female with history of permanent atrial fibrillation, on apixaban, diltiazem, hypertension, presents to ED due to right upper quadrant with epigastric tenderness. Patient describes it as a band that goes from her epigastrium, to right upper quadrant somewhat around laterally. No nausea or vomiting. Patient stated last p.m. is when this started, she had intake of yogurt with protein powder added, approximately 6?7 started having this epigastric tenderness. She stated it was a sharp stabbing pain through to her right side of her abdomen. The pain waxes and wanes. She has not had any thoracic pain. No previous cardiac workup. No dyspepsia. No bowel movement changes. Last intake of food was approximately 8 AM with breakfast?eggs. Associated Symptoms: Denies chills, fever(s), nausea and vomiting Related Data Home Medications ?Medication ?Instructions ?Recorded ?Confirmed apixaban 5 mg tablet (Eliquis) 5 mg PO BID 08/30/23 08/30/23 diltiazem HCl 360 mg 360 mg PO DAILY 08/30/23 08/30/23 capsule,extended release 24 hr losartan 50 mg tablet 50 mg PO DAILY 08/30/23 08/30/23 Allergies Allergy/AdvReac Type Severity Reaction Status Date / Time metoprolol Allergy Unknown Verified 02/09/25 14:30 Review of Systems Const: Denies: fever(s) or chills Eyes: Denies: change in vision or blurry vision Card: Denies: chest pain or dyspnea on exertion Resp: Denies: dyspnea or productive cough GI: Denies: abdominal pain, nausea or vomiting : Denies: difficulty voiding Musc: Denies: extremity pain or joint pain Skin/Breast: Denies: changes in skin color or dry skin Neuro: Denies: numbness in extremities or weakness in extremities Psych: Denies: anxiety Lg/Lymph: Denies: easy bruising or easy bleeding [facility] PFSH: Social History (Updated 08/30/23 @ 15:25 by Carl Craft LPN) Smoking and tobacco/nicotine status: never used tobacco/nicotine Alcohol intake: never Substance/Drug Use: never Physical Exam Const: COMMON NORMALS: no acute distress, average body habitus and patient oriented x3 HENMT: COMMON NORMALS: normocephalic, atraumatic, hearing grossly normal bilaterally and TM's normal bilaterally HEAD & SCALP: normocephalic and atraumatic TYMPANIC MEMBRANE: TM's normal bilaterally Eye: COMMON NORMALS: Equal, round and reactive pupils present and EOMs intact bilaterally PUPIL: Yes Equal, round and reactive pupils present Neck/C-Spine: COMMON NORMALS: full ROM and no lymphadenopathy Lymph: LYMPHATIC: no lymphadenopathy noted and no lymphedema noted Chest: COMMONS NORMALS: normal inspection of the chest and normal palpation of entire chest wall Resp: COMMON NORMALS: normal respiratory effort, No retractions and clear to auscultation bilaterally AUSCULTATION: clear to auscultation bilaterally Cardio: RHYTHM: abnormal rhythm irregularly irregular GI: COMMON NORMALS: Normal to inspection, nondistended, normoactive bowel sounds present and Soft to palpation PALPATION: Yes Soft to palpation : COMMON NORMALS: Yes no CVA tenderness BLADDER/KIDNEY EXAM: Yes no CVA tenderness Back/Pelvis: COMMON NORMALS: no CVA tenderness Extremity: COMMON NORMALS: normal to inspection, full ROM and capillary refill normal Neuro: COMMON NORMALS: patient oriented x3 Psych: COMMON NORMALS: mental status grossly normal, cooperative and normal affect Skin: COMMON NORMALS: no rashes or lesions noted, no wounds and turgor normal GENERAL SKIN EXAM: no rashes or lesions noted and turgor normal Course Vital Signs: Vital signs: Vital Signs Temperature 98.3 F 02/09/25 14:21 Pulse Rate 102 H 02/09/25 19:25 Respiratory Rate 14 02/09/25 14:21 Blood Pressure 187/117 02/09/25 19:25 Pulse Oximetry 94 02/09/25 19:25 Oxygen Delivery Me thod Room Air 02/09/25 19:25 MDM - Abdominal Pain Medical Decision Making Patient is 69-year-old female that reports to ED with right upper quadrant pain. Lipase is in range, ultrasound is in range. There is no leukocytosis. Urine analysis is benign. Workup is essentially negative. I suspect association of function versus constipation. Patient will follow-up with primary care. She will start probiotics to give them feedback. As far as her cardiac exam, there was no concern for cardiac involvement with her complaints. She had an irregular heartbeat consistent with her chronic A-fib that was controlled with Cardizem, and continues compliant on apixaban. All of her questions answered to her satisfaction Lab Data 02/09/25 16:29 02/09/25 16:29 Labs/Radiology: Radiology Impressions Abdomen Ultrasound 02/09/25 17:12 IMPRESSION: Unremarkable duplex of the portal vein. IMPRESSION: 1. Questionable fatty infiltration of the liver. 2. Otherwise unremarkable right upper quadrant ultrasound. Laboratory Results WBC 6.66 10^3/uL (3.29-11.43) 02/09/25 16: RBC 4.74 10^6/uL (3.85-5.65) 02/09/25 16: Hgb 14.10 g/dL (11.27-16.99) 02/09/25 16: Hct 42.7 % (36-47) 02/09/25 16: MCV 90.1 fl (85-98) 02/09/25 16: MCH 29.7 pg (27-33) 02/09/25 16: MCHC 33.0 g/dL (30-55) 02/09/25 16: RDW 13.7 % (12.1-15.1) 02/09/25 16: Plt Count 160 10^3/cmm (157-399) 02/09/25 16: MPV 10.7 fL (7.4-10.4) H 02/09/25 16: Neut % (Auto) 52.2 % 02/09/25 16: Lymph % (Auto) 32.6 % 02/09/25 16: [place] % (Auto) 11.6 % 02/09/25 16: Eos % (Auto) 2.6 % 02/09/25 16: Baso % (Auto) 0.8 % 02/09/25 16: Neut # (Auto) 3.49 10^3/uL (1.8-7.7) 02/09/25 16: Lymph # (Auto) 2.2 10^3/uL (0.8-4.8) 02/09/25 16: [place] # (Auto) 0.8 10^3/uL (0.2-0.9) 02/09/25 16: Eos # (Auto) 0.2 10^3/uL (0.0-0.8) 02/09/25 16: Baso # (Auto) 0.1 10^3/uL (0.0-0.1) 02/09/25 16: Nucleated RBC % (auto) 0 % 02/09/25 16: Nucleated RBCs # 0.0 /100WBC 02/09/25 16:29 Sodium 138 mmol/L (136-145) 02/09/25 16: Potassium 3.9 mmol/L (3.5-5.1) 02/09/25 16: Chloride 100 mmol/L (98-107) 02/09/25 16: Carbon Dioxide 29 mmol/L (22-29) 02/09/25 16: Anion Gap 12.9 (5-19) 02/09/25 16: BUN 23 mg/dL (8-23) 02/09/25 16: Creatinine 1.0 mg/dL (0.5-0.9) H 02/09/25 16:29 GFR Calculation 55.0 mL/min (90-130) L 02/09/25 16: Glucose 105 mg/dL (65-115) 02/09/25 16: Calculated Osmolality 290 mOsm/kg (285-295) 02/09/25 16: Calcium 9.4 mg/dL (8.5-10.5) 02/09/25 16: Total Bilirubin 0.4 mg/dL (0.15-1.2) 02/09/25 16:29 AST 22 U/L (0-32) 02/09/25 16:29 ALT 18 U/L (0-33) 02/09/25 16: Alkaline Phosphatase 58 U/L (35-105) 02/09/25 16: Total Protein 7.1 g/dL (6.6-8.7) 02/09/25 16:29 Albumin 4.0 g/dL (3.5-5.2) 02/09/25 16: Globulin 3.1 g/dL (1.3-4.6) 02/09/25 16:29 Lipase 53 U/L (13-60) 02/09/25 16:29 Urine Color Yellow (Yellow) 02/09/25 18:30 Urine Appearance Clear (CLEAR) 02/09/25 18:30 Urine pH 6.0 (5-7) 02/09/25 18:30 Ur Specific [place] 1.007 (1.005-1.030) 02/09/25 18:30 Urine Protein Negative (Negative) 02/09/25 18:30 Urine Glucose (UA) Negative (Normal) 02/09/25 18:30 Urine Ketones Negative (Negative) 02/09/25 18:30 Urine Blood Negative (Negative) 02/09/25 18:30 Urine Nitrate Negative (Negative) 02/09/25 18:30 Urine Bilirubin Negative (Negative) 02/09/25 18:30 Urine Urobilinogen 0.2 mg/dL (Negative) 02/09/25 18:30 Ur Leukocyte Esterase Negative (Negative) 02/09/25 18:30 Urine RBC 0-2 /hpf (0-2) 02/09/25 18:30 Urine WBC 0-5 /hpf (0-5) 02/09/25 18:30 Ur Squamous Epith Cells 0-5 /hpf (0-5) 02/09/25 18:30 Amorphous Sediment Not Reportable 02/09/25 18:30 Urine Bacteria None seen /hpf (NONE) 02/09/25 18:30 Hyaline Casts 0-4 /lpf H 02/09/25 18:30 All radiology interpretation(s) finalized by discharge Discharge Plan Discharge Patient Disposition: Home Clinical Impression: Abdominal pain Condition: Stable Prescriptions: No Action diltiazem HCl 360 mg capsule,extended release 24hr 360 mg PO DAILY losartan 50 mg tablet 50 mg PO DAILY Eliquis 5 mg tablet 5 mg PO BID Discharge Orders: Discharge ED (Routine); Ordered 02/09/25 Ordered By: Joie Frazier Referrals: Sanchez Dsouza [Primary Care Provider, Family Practice] Discharge Diet: Usual diet and Low Salt Discharge Activity: Resume usual activity Patient Instructions: Abdominal Pain (ED), Patient Portal & Jennifer Instructions Activity Restrictions/Additional Instructions: - Add probiotics x 2 daily - Follow-up with your primary care physician regarding today's visit - Continue your home medications - Repeat your blood pressure after your home, if greater than 180/100, take your blood pressure medication. 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
--- NOTE | 2025-02-09 17:12 | USR_ITS ---
PROCEDURE INFORMATION: Exam: US Duplex Artery or Vein of the Abdominal and/or Reproductive Organs, Limited Liver Exam date and time: 02/09/2025 6:37 PM Age: 69 years old Clinical indication: Abdominal pain; Localized; Right upper quadrant (ruq); Additional info: Right upper quadrant pain TECHNIQUE: Imaging protocol: Real-time duplex ultrasound scan of the arterial or venous flow with color Doppler flow and spectral waveform analysis with image documentation. Limited Duplex exam focused on the liver and portal venous system. Duplex exam was performed to evaluate for vascular conditions. COMPARISON: No relevant prior studies available. FINDINGS: Portal venous: Patent. Normal waveforms. Normal hepatopetal (towards the liver) flow. Hepatic artery: Not assessed. PROCEDURE INFORMATION: Exam: US Abdomen, Limited; Right Upper Quadrant Exam date and time: 02/09/2025 6:37 PM Age: 69 years old Clinical indication: Abdominal pain; Localized; Right upper quadrant (ruq); Additional info: Right upper quadrant pain TECHNIQUE: Imaging protocol: Real time ultrasound of the abdomen with image documentation. Limited exam focused on the right upper quadrant. COMPARISON: No relevant prior studies available. FINDINGS: Liver: Questionable mild increased echogenicity of the hepatic parenchyma may represent fatty infiltration. The liver is otherwise normal. Gallbladder: The gallbladder is contracted. No gallstones are identified. Gallbladder wall appears within normal limits. Biliary ducts: There is no evidence of intra or extrahepatic ductal dilatation. The common bile duct measures 4 mm. Pancreas: The visualized portions of the pancreas are within normal limits. The tail is obscured by bowel gas. Right kidney: Mildly dilated right renal pelvis without hydronephrosis may represent extrarenal pelvis. The right kidney is otherwise normal. No renal calcifications are identified. The right kidney measures 8.8 cm in length. Aorta: The visualized aorta appears within normal limits. Inferior vena cava: The visualized inferior vena cava is within normal limits. Portal venous: The portal vein is patent. US/US abdomen limited [id number] IMPRESSION: Unremarkable duplex of the portal vein. IMPRESSION: 1. Questionable fatty infiltration of the liver. 2. Otherwise unremarkable right upper quadrant ultrasound.
[2025-02-09 17:13] LABS: Lipase 53 U/L (13-60)
[2025-02-09 17:30] VITALS: BP 159/90; PULSE 98; O2SAT 94
[2025-02-09 18:36] LABS: Glucose Urine UA Negative (Normal); Nitrate Urine Negative (Negative); Specific Gravity, Urine 1.007 (1.005-1.030)
[2025-02-09 18:40] LABS: Add Urine Microscopic? YES
[2025-02-09 19:25] VITALS: BP 187/117; PULSE 102; O2SAT 94
== END 2025-02-09 19:54 | disposition home or self-care (01) ==
PROVIDERS: Family Medicine; Emergency Provider Physician Assistant; PCP Family Medicine
DX: R10.11 Right upper quadrant pain (principal); Z79.01 Long term (current) use of anticoagulants; I10 Essential (primary) hypertension
CPT/HCPCS: 36415; 76705; 80053; 81001; 83690; 85025; 93005; 99284